=== PATIENT | male | born 1965 | race Caucasian/White ===

== ENCOUNTER 2018-04-21 17:45 | Emergency (ER) | payer BC ==
[2018-04-21 18:03] VITALS: BP 132/80
[2018-04-21] MEDS ORDERED: Albuterol HFA INHALER* 8 gm MDI INH ONE (18:16)
[2018-04-21] MEDS ORDERED: Azithromycin TAB* 250 MG PO ONE ×2 (18:16→18:20)
--- NOTE | 2018-04-21 18:18 | UC ---
Respiratory Complaint HPI - HPI Summary HPI Summary: 3 days of worsening cough-with wheeze and harsh cough-no fevers - History of Current Complaint Chief Complaint: UCGeneralIllness Stated Complaint: COUGH IRRITATION LUNGS Time Seen by Provider: 04/21/18 17:57 Hx Obtained From: Patient Onset/Duration: Gradual Onset, Lasting Days - 3, Still Present Timing: Constant Pain Intensity: 0 Pain Scale Used: 0-10 Numeric Character: Cough: Nonproductive Aggravating Factors: Recumbent Position Alleviating Factors: Nothing - Allergies/Home Medications Allergies/Adverse Reactions: Allergies Allergy/AdvReac Type Severity Reaction Status Date / Time No Known Allergies Allergy Verified 04/21/18 18:03 PMH/Surg Hx/FS Hx/Imm Hx Previously Healthy: Yes - Surgical History Surgical History: None - Social History Occupation: Employed Full-time Lives: With Family Alcohol Use: Occasionally Substance Use Type: None Smoking Status (MU): Never Smoked Tobacco Review of Systems All Other Systems Reviewed And Are Negative: Yes Constitutional: Positive: Negative Skin: Positive: Negative Eyes: Positive: Negative, Diplopia ENT: Positive: Negative Respiratory: Positive: Cough Cardiovascular: Positive: Negative Gastrointestinal: Positive: Negative Genitourinary: Positive: Negative Motor: Positive: Negative Neurovascular: Positive: Negative Musculoskeletal: Positive: Negative Neurological: Positive: Negative Psychological: Positive: Negative Is Patient Immunocompromised?: No Physical Exam Triage Information Reviewed: Yes Appearance: Well-Appearing, No Pain Distress, Well-Nourished Vital Signs: Initial Vital Signs Temp 98.6 F 04/21/18 17:58 Pulse 68 04/21/18 17:58 Resp 19 04/21/18 17:58 BP 132/80 04/21/18 17:58 Pulse Ox 92 04/21/18 17:58 Vital Signs Reviewed: Yes Eye Exam: Normal Eyes: Positive: Conjunctiva Clear ENT Exam: Normal ENT: Positive: Normal ENT inspection, Hearing grossly normal, Pharynx normal, TMs normal, Uvula midline. Negative: Nasal congestion, Trismus, Muffled voice, Hoarse voice, Dental tenderness, Sinus tenderness Dental Exam: Normal Neck exam: Normal Neck: Positive: Supple, Nontender, No Lymphadenopathy Respiratory Exam: Normal Respiratory: Positive: Chest non-tender, Lungs clear, Normal breath sounds, No respiratory distress, No accessory muscle use, Wheezing, Other: - sat recheck 98 % Cardiovascular Exam: Normal Cardiovascular: Positive: RRR, Pulses Normal, Brisk Capillary Refill Musculoskeletal Exam: Normal Musculoskeletal: Positive: Strength Intact, ROM Intact, No Edema Neurological Exam: Normal Neurological: Positive: Alert, Muscle Tone Normal Psychological Exam: Normal Skin Exam: Normal UC Diagnostic Evaluation - Laboratory O2 Sat by Pulse Oximetry: 92 Respiratory Course/Dx - Course Course Of Treatment: increase fluids, tylenol ibuprofen for pain, albuterol mdi zithromax follow with pcp prn - Differential Dx/Diagnosis Provider Diagnosis: Bronchitis Discharge - Sign-Out/Discharge Documenting (check all that apply): Patient Departure All imaging exams completed and their final reports reviewed: No Studies - Discharge Plan Condition: Stable Disposition: HOME Prescriptions: Azithromycin TAB* [Zithromax TAB (Z-PEPE) 250 mg #6 tabs] 250 mg PO DAILY #3 tab Patient Education Materials: Acute Bronchitis (ED), How to Use a Metered-Dose Inhaler and a Spacer (ED) Referrals: Louis Guardado MD [Primary Care Provider] - If Needed - Billing Disposition and Condition Condition: STABLE Disposition: Home
== END 2018-04-21 18:38 | disposition home or self-care (01) ==
LOC: UCEAST 17:45
DX: J40 Bronchitis, not specified as acute or chronic (principal)
CPT/HCPCS: 99213; A9270-GY; G0463